=== PATIENT | female | born 1950 | race Caucasian/White ===

== ENCOUNTER → 2017-06-10 | Outpatient (CLI) | payer OTHER ==
--- NOTE | ~2017-06-10 | US77 ---
[facility] A Service of [facility] & [facility] RADIOLOGY TEXT RESULTS PATIENT: WILDA PENA LOCATION: [facility] : 54 UNIT #: [id number] AGE: [address]: Leroy Brannon MD SEX: F ORDER DR: [id number] [facility] [address] [place], [place] [address] [id number] O MR#: [id number] Acc #: [id number] NAME: WILDA PENA : 1950 SEX: F STUDY DATE/TIME: 06/10/2017 12:56 UNIT: [facility] ROOM: STUDY DESCRIPTION: US Kidney Bilateral Complete Attending Physician: Ender Brannon M.D. Referring Physician: Ender Brannon M.D. Ordering Physician: Ender Brannon M.D. Primary Care Physician: Kristal Sargent M.D. MEDICAL IMAGING REPORT This report is preliminary unless electronic signature is present EXAM Renal ultrasound complete 06/10/2017 HISTORY Chronic kidney disease stage III, follow up. Diabetes and hypertension. FINDINGS The right kidney measures 10.1 cm, while the left kidney measures 10 cm in longitudinal dimensions. There is no evidence of hydronephrosis or nephrolithiasis. There is a 2.9 cm x 1.5 cm x 1.4 cm indeterminate hypoechoic lesion on the left kidney. This contains internal echoes and cannot be classified as a cyst. Recommend follow-up ultrasound in 6 months to assess the lesion for stability. There is normal renal cortical echogenicity. Images of the bladder are normal. IMPRESSION Question is raised of a 2.9 cm hypoechoic nodule on the left kidney. Follow-up renal ultrasound is recommended in 6 months to assess the lesion for stability. There is no evidence of hydronephrosis. STAT * RESULT Dictated by... Rudolph Martinez M.D. THIS IS AN ELECTRONICALLY VERIFIED REPORT Rudolph Martinez M.D. at 06/10/2017 5:34 PM KRT/pcl [facility] A Service of [facility] & [facility] RADIOLOGY TEXT RESULTS PATIENT: WILDA PENA LOCATION: [facility] : 54 UNIT #: [id number] AGE: [address]: Leroy Brannon MD SEX: F ORDER DR: TD: 06/10/2017 15:57 JOB #: [id number] MEDICAL IMAGING REPORT Page 1 of 1 COPY
== END | disposition home or self-care (01) ==
LOC: CGUS 12:32
DX: I12.9 Hypertensive chronic kidney disease with stage 1 through stage 4 chronic kidney disease, or unspecified chronic kidney disease (principal); E11.22 Type 2 diabetes mellitus with diabetic chronic kidney disease; N18.3 Chronic kidney disease, stage 3 (moderate)
CPT/HCPCS: 76770